=== PATIENT | female | born 1960 | race Caucasian/White ===

== ENCOUNTER → 2023-04-30 13:55 | Outpatient (REF) | payer BC, SELFPAY | LOC: WDC 13:55 | PROVIDERS: ATTENDING PHYSICIAN Surgery; FAMILY PHYSICIAN Family Medicine | DX: R92.2 Inconclusive mammogram (principal) | CPT/HCPCS: 76641 ==

== ENCOUNTER → 2024-03-11 15:22 | Outpatient (REF) | payer BC, SELFPAY | LOC: WDC 15:22 | PROVIDERS: ATTENDING PHYSICIAN Nurse Practitioner Adult Health; FAMILY PHYSICIAN Family Medicine | DX: Z12.31 Encounter for screening mammogram for malignant neoplasm of breast (principal) | CPT/HCPCS: 77063; 77067 ==

== ENCOUNTER → 2025-01-12 12:50 | Outpatient (REF) | payer MEDICARE, OTHER, SELFPAY | LOC: WDC 12:50 | PROVIDERS: ATTENDING PHYSICIAN Nurse Practitioner Adult Health; FAMILY PHYSICIAN Family Medicine | DX: R92.2 Inconclusive mammogram (principal) | CPT/HCPCS: 76641 ==